=== PATIENT | male | born 1965 | race Hispanic/Latino ===

== ENCOUNTER 2017-08-23 04:06 | Emergency (ER) | payer MEDICARE, OTHER ==
[2017-08-23 04:13] VITALS: BP 158/77; PULSE 146; RESP 20; TEMP 98.1; O2SAT 99; BMI 31.3
--- NOTE | 2017-08-23 04:39 | ED PDOC ---
Arrival/HPI - General Chief Complaint: Anxiety Time Seen by Provider: 08/23/17 04:27 Historian: Patient - History of Present Illness Narrative History of Present Illness (Text): 08/23/17 04:36 A 51 year old male, whose past medical history includes , presents to the emergency department complaining of constipation and increased anxiety. Patient reports he has not taken his anxiety medication for 1 week. Also, patient states his bowel movement is stuck. No PMD Past Medical History - Provider Review Nursing Documentation Reviewed: Yes - Pulmonary Hx Asthma: Yes - Psychiatric Hx Substance Use: No - Anesthesia Hx Anesthesia: No Hx Anesthesia Reactions: No Hx Malignant Hyperthermia: No Family/Social History - Physician Review Nursing Documentation Reviewed: Yes Family/Social History: No Known Family HX Smoking Status: Never Smoked Hx Alcohol Use: No Hx Substance Use: No Allergies/Home Meds Allergies/Adverse Reactions: Allergies Penicillins Allergy (Verified 08/23/17 04:19) RASH Home Medications: Home Meds Medication Instructions Recorded Confirmed FLUoxetine [Prozac] 08/23/17 [place] Aspartate [Lithate] 08/23/17 Review of Systems - Physician Review All systems were reviewed & negative as marked: Yes - Review of Systems Constitutional: absent: Fevers, Night Sweats Respiratory: absent: SOB Cardiovascular: absent: Chest Pain Gastrointestinal: absent: Abdominal Pain, Diarrhea, Nausea, Vomiting Psychiatric: Anxiety Physical Exam Vital Signs Reviewed: Yes Vital Signs Temp Pulse Resp BP Pulse Ox 08/23/17 04:12 98.1 F 146 H 20 158/77 H 99 Temperature: Afebrile Blood Pressure: Hypertensive Pulse: Tachycardic Respiratory Rate: Normal Appearance: Positive for: Well-Appearing Pain Distress: None Mental Status: Positive for: Alert and Oriented X 3 - Systems Exam Head: Present: Atraumatic, Normocephalic Pupils: Present: PERRL Extroacular Muscles: Present: EOMI Conjunctiva: Present: Normal Mouth: Present: Moist Mucous Membranes Neck: Present: Normal Range of Motion Respiratory/Chest: Present: Clear to Auscultation, Good Air Exchange. No: Respiratory Distress, Accessory Muscle Use Cardiovascular: Present: Regular Rate and Rhythm, Normal S1, S2. No: Murmurs Abdomen: Present: Normal Bowel Sounds. No: Tenderness, Distention, Peritoneal Signs Back: Present: Normal Inspection Upper Extremity: Present: Normal Inspection. No: Cyanosis, Edema Lower Extremity: Present: Normal Inspection. No: Edema Neurological: Present: GCS=15, CN II-XII Intact, Speech Normal Skin: Present: Warm, Dry, Normal Color. No: Rashes Psychiatric: Present: Alert, Oriented x 3, Normal Insight, Normal Concentration Medical Decision Making ED Course and Treatment: 08/23/17 04:40 Impression: 51 year old male with constipation and anxiety. Plan: -- Ativan -- Fleet Enema -- Reassess and disposition Progress Notes: - Medication Orders Current Medication Orders: Discontinued Medications Lorazepam (Ativan) 1 mg PO ONCE ONE PRN Reason: Protocol Stop: 08/23/17 04:37 Last Admin: 08/23/17 04:48 Dose: 1 mg Sodium Phosphate (Fleet Enema) 135 ml RC STAT STA Stop: 08/23/17 04:36 Last Admin: 08/23/17 04:50 Dose: 135 ml - Scribe Statement The provider has reviewed the documentation as recorded by the Tayo Friedman Provider Scribe Attestation: All medical record entries made by the Griseldaibkateryna were at my direction and personally dictated by me. I have reviewed the chart and agree that the record accurately reflects my personal performance of the history, physical exam, medical decision making, and the department course for this patient. I have also personally directed, reviewed, and agree with the discharge instructions and disposition. Disposition/Present on Arrival - Present on Arrival Any Indicators Present on Arrival: No History of DVT/PE: No History of Uncontrolled Diabetes: No Urinary Catheter: No History of Decub. Ulcer: No History Surgical Site Infection Following: None - Disposition Have Diagnosis and Disposition been Completed?: Yes Diagnosis: Constipation Disposition: HOME/ ROUTINE Disposition Time: 06:00 Condition: GOOD Discharge Instructions (ExitCare): Constipation (ED) Additional Instructions: use miralax otc Referrals: Lonny Sanchez MD [Primary Care Provider] - Follow up with primary Forms: [employer] ([place]ic)
== END 2017-08-23 06:27 | disposition home or self-care (01) ==
LOC: ED 04:06
DX: K59.00 Constipation, unspecified (principal)